=== PATIENT | male | born 1960 | race Caucasian/White ===

== ENCOUNTER 2017-03-19 17:45 | Inpatient (IN) | payer SELFPAY ==
[2017-03-19] MEDS ORDERED: Ketorolac Tromethamine 30 MG/ML VIAL ONE (19:11)
[2017-03-19] MEDS ORDERED: Acetaminophen 500 MG TAB ONE (19:28)
[2017-03-19 19:38] LABS: #Eosinphils 0.1 thou/uL (0.0-0.7); #Lymphocytes 2.1 thou/uL (1.20-3.40); #Monocytes 1.2 thou/uL (0.11-0.59); #Neutrophils 13.8 thou/uL (1.40-6.50); %Basophils 0.1 % (0.0-1.0); %Eosinophils 0.5 % (0.0-10.0); %Lymphocytes 12.4 % (21.0-51.0); %Monocytes 6.9 % (0.0-10.0); %Neutrophils 80.2 % (42.0-75.0); Mean Corpuscular HGB CONC 34.1 g/dL (32.0-36.0); Mean Corpuscular Hemoglobin 31.8 pg (27.0-31.0); Mean Corpuscular Volume 93.4 fl (80.0-94.0); Platelet Count 329 thou/uL (130-400); RBC Distribution Width 11.1 % (11.5-14.5); Red Blood Cell (RBC) Count 5.03 mill/uL (4.70-6.10); White Blood Cell (WBC) Count 17.2 thou/uL (4.8-10.8)
[2017-03-19 19:43] LABS: PTT 25.7 SEC (22.9-36.1); Prothrombin Time 13.2 SEC (12.0-14.7)
[2017-03-19] MEDS ORDERED: Piperacillin/Tazobactam 4.5 GM in Sodium Chloride 0.9% 100 ML IVPB SCH (19:45)
--- NOTE | 2017-03-19 19:57 | RAD ---
LEFT KNEE FOUR VIEWS: 03/19/17 HISTORY: Fall with knee pain. There is some benign appearing periosteal change of the tibia and fibula. There is some mild medial c ompartment narrowing and minimal spurring of the patellofemoral compartment. Small joint effusion is seen. IMPRESSION: Small joint effusion with mild arthritic changes in the knee. POS: [facility]
[2017-03-19 20:02] LABS: ALT (SGPT) 60 U/L (8-55); AST (SGOT) 27 U/L (5-34); Albumin 4.5 g/dL (3.5-5.0); Alkaline Phosphatase 73 U/L (40-150); Anion Gap 14 mmol/L (10-20); BUN (Urea Nitrogen) 10 mg/dL (8.4-25.7); Bilirubin, Total 0.8 mg/dL (0.2-1.2); Calc. Creatinine Clearance 0 mL/min (70-130); Calcium 10.3 mg/dL (7.8-10.44); Carbon Dioxide 26 mmol/L (22-29); Chloride 101 mmol/L (98-107); Estimated GFR-MDRD 83; Globulin 3.3 g/dL (2.4-3.5); Glucose 141 mg/dL (70-105); Potassium 3.8 mmol/L (3.5-5.1); Protein, Total 7.8 g/dL (6.0-8.3); Sodium 137 mmol/L (136-145)
[2017-03-19] MEDS ORDERED: Lidocaine 1% w/Epinephrine 1:100K 20 ML VIAL ONE (20:20)
[2017-03-19 21:37] LABS: CKMB 0.8 ng/mL (0-6.6); Troponin I Less than 0.010 ng/mL (< 0.028)
--- NOTE | 2017-03-19 21:42 | RAD ---
PORTABLE CHEST: 03/19/17 HISTORY: Cough and fever. Heart size is within normal limits. Mediastinal structures appear unremarkable. The lungs are clear o f infiltrates. No significant bony findings. IMPRESSION: No active intrathoracic disease. POS: [facility]
[2017-03-19] MEDS ORDERED: hydrALAZINE 20 MG/ML VIAL SLOW IVP PRN (23:04)
[2017-03-19] MEDS ORDERED: Diabetic Tussin 200 MG/10 ML UDCUP PO PRN (23:04)
[2017-03-19] MEDS ORDERED: traMADol HCl 50 MG TAB PO PRN (23:04)
[2017-03-19] MEDS ORDERED: Senokot 8.6 MG TAB PO PRN (23:04)
[2017-03-19] MEDS ORDERED: Loratadine 10 MG TAB PO PRN (23:04)
[2017-03-19] MEDS ORDERED: cloNIDine 0.1 MG TAB PO PRN (23:04)
[2017-03-19] MEDS ORDERED: Ondansetron HCl/PF 4 MG/2 ML Vial IVP PRN (23:04)
[2017-03-19] MEDS ORDERED: Acetaminophen 325 MG TAB PO PRN (23:04)
[2017-03-19] MEDS ORDERED: Bisacodyl 5 MG TAB PO PRN (23:04)
[2017-03-19] MEDS ORDERED: Nitroglycerin 0.4 MG TAB (25 Tab Bottle) SL PRN (23:04)
[2017-03-19] MEDS ORDERED: Benzonatate 100 MG CAP PO PRN (23:04)
[2017-03-19] MEDS ORDERED: Calcium Carbonate 500 MG ChewTAB PO PRN (23:04)
[2017-03-19] MEDS ORDERED: Mag-Al 1200 mg/1200 mg/30 ML UDCUP PO PRN (23:04)
[2017-03-19] MEDS: Sodium Chloride 0.9% 1,000 ML IV SCH (23:22)
[2017-03-19] MEDS ORDERED: Amlodipine 5 MG TAB PO SCH (23:30)
[2017-03-19 23:40] VITALS: BMI 28.5
[2017-03-19 23:44] LABS: Lactic Acid 2.1 mmol/L (0.5-2.2)
--- NOTE | 2017-03-19 23:58 | HP ---
PRIMARY CARE PHYSICIAN: Dr. Forman. CHIEF COMPLAINT: Fever and left knee pain. HISTORY OF PRESENT ILLNESS: Mr. Manzo is a 56-year-old male without any significant past medical h istory who presented to the emergency room with the above-mentioned complaints. The patient's histor y is obtained mainly by himself and electronic medical records have been reviewed. Case has been dis cussed with admitting ER physician. According to Mr. Manzo, he has history of gout and oftentimes he would have swelling of his toes. He has had one episode of left knee swelling about 6 months ago when an outside physician drained abo ut 80 mL of fluid from his left knee and his symptoms improved. He has a reoccurring knee pain a few days ago and went to see his primary care physician, Dr. Forman who drained the knee and gave him a steroid injection. His pain improved, but yesterday, he started to have low-grade fevers, which wa s subjective in nature. His left knee started to hurt again. He does not have any significant swell ing, but the fever bothered him and he came to the Emergency Room where his fever was 100.6. In the emergency room, attempt was made to do another arthrocentesis, but no fluid was obtainable. A n x-ray of the knee was done which does not show any specific fluid collection. Because of the fever and the knee pain, the possibility of septic arthritis is entertained. director call Orthopedics, Dr. Alfred allred have been contacted. As per his recommendations, he is going to be admitted to Internal Medici ne with Orthopedics consultation for possible I&D tomorrow. He has received appropriate IV antibioti cs in the emergency room as per my discussion with the ER physician. PAST MEDICAL HISTORY: Gout. PAST SURGICAL HISTORY: Arthrocentesis of the left knee. PSYCHIATRIC HISTORY: No anxiety, no depression. SOCIAL HISTORY: He dips tobacco and uses one can per day. He drinks up to 3-4 alcoholic beverages o n a daily basis. He has been dipping tobacco for almost 30 years or more. FAMILY HISTORY: Hypertension in his father, otherwise he denies any premature coronary artery diseas e, stroke, cancer, diabetes in his family. ALLERGIES: No known medication allergies. CURRENT MEDICATIONS: None. REVIEW OF SYSTEMS: The following complete review of systems was negative, unless otherwise mentioned in the HPI or below: Constitutional: Weight loss or gain, ability to conduct usual activities. Sk in: Rash, itching. Eyes: Double vision, pain. ENT/Mouth: Nose bleeding, neck stiffness, pain, te nderness. Cardiovascular: Palpitations, dyspnea on exertion, orthopnea. Respiratory: Shortness of breath, wheezing, cough, hemoptysis, fever or night sweats. Gastrointestinal: Poor appetite, abdom inal pain, heartburn, nausea, vomiting, constipation, or diarrhea. Genitourinary: Urgency, frequenc y, dysuria, nocturia. Musculoskeletal: Pain, swelling. Neurologic/Psychiatric: Anxiety, depressio n. Allergy/Immunologic: Skin rash, bleeding tendency. It is negative except for those mentioned in the history and physical. PHYSICAL EXAMINATION: VITAL SIGNS: Upon presentation, blood pressure 139/73, pulse of 115, respirations 20, temperature 10 0.6, saturating 96% on room air. GENERAL: In no acute distress, awake, alert, oriented x3. HEENT: Mucous membrane is moist and pink. No oropharyngeal exudate or erythema. Head is normocepha lic, atraumatic. Pupils equal, reactive to light and accommodation. Extraocular movements intact. NECK: Supple without any lymphadenopathy, JVD or bruit. CHEST: Clear to auscultation without any wheezing, rales or rhonchi. CARDIOVASCULAR: Rate and rhythm is regular without any murmur, rubs or gallops. ABDOMEN: Soft, nontender, nondistended. Positive bowel sounds. EXTREMITIES: his left knee is warm to touch without any significant erythema to it. No crepitus or effusions noticed on palpation. His range of motion is somewhat limited due to pain, but otherwise l ower extremities are free of any cyanosis, clubbing, or edema. Mild swelling of the left knee in com parison to the right knee is noticed. NEUROLOGIC: Nonfocal. SKIN: Free of any rashes or bruises. Feels warm and dry to touch. PSYCHIATRIC: Normal affect. LABORATORY DATA: His 12-lead EKG shows sinus tachycardia with first degree AV block. Chest x-ray by my review, there is no evidence of pleural effusion. No infiltrate either. Knee x-ray of the left knee shows some medial compartment narrowing and spurring of the patellofemoral compartment. A small joint effusion is seen with moderate arthritic change in the knee. His CBC shows WBCs elevated at 1 7.2 with 80% neutrophils, otherwise unremarkable. ESR is normal at 8. CRP is elevated to 4.44. His lactic acid is elevated to 2.7. Blood sugar of 141, AST 60. Cardiac enzymes are negative. Creatin e kinase 92. Coagulation studies are within normal limits. His serum chemistry is otherwise unremar kable. IMPRESSION AND PLAN: 1. Left knee pain with fever. Possible septic arthritis. The patient has elevated WBCs and lactic acid and the possibility of sepsis cannot be ruled out. At this time, we will continue the broad spe ctrum IV antibiotics and consult Orthopedics in the morning. Blood cultures have been obtained and w e will follow the results. We will continue him on vancomycin and Zosyn that he has received in the emergency room. Further imaging studies as per Orthopedics recommendations. 2. Hypertension. The patient is mildly hypertensive in the hospital. Most likely, he has essential hypertension that has not been corrected, we will start him on low dose amlodipine and monitor close ly. 3. Chest pain. The patient did tell the ER physician that he had some chest pain earlier today. Se rial cardiac enzymes have been ordered and we will follow the results. Currently, he is symptom free and hemodynamically stable. His 12-lead EKG is unremarkable for any evidence of acute coronary synd leda. 4. History of gout, currently not on any medications. 5. Code status: FULL CODE. Discussed with the patient. 6. Deep venous thrombosis and gastrointestinal prophylaxis. DISPOSITION: Mr. Manzo is being admitted for possible septic arthritis and sepsis. ESTIMATED LENGTH OF STAY: At this time is 2-3 midnight. Further management will depend upon his cli nical course.
[2017-03-20 00:04] LABS: Troponin I Less than 0.010 ng/mL (< 0.028)
[2017-03-20 02:48] LABS: #Eosinphils 0.1 thou/uL (0.0-0.7); #Lymphocytes 2.5 thou/uL (1.20-3.40); #Monocytes 1.1 thou/uL (0.11-0.59); #Neutrophils 6.1 thou/uL (1.40-6.50); %Basophils 0.2 % (0.0-1.0); %Eosinophils 0.7 % (0.0-10.0); %Lymphocytes 25.4 % (21.0-51.0); %Monocytes 11.1 % (0.0-10.0); %Neutrophils 62.5 % (42.0-75.0); Hemoglobin 13.5 g/dL (14.0-18.0); Mean Corpuscular HGB CONC 34.4 g/dL (32.0-36.0); Mean Corpuscular Hemoglobin 32.2 pg (27.0-31.0); Mean Corpuscular Volume 93.6 fl (80.0-94.0); Mean Platelet Volume 7.8 fL (7.4-10.4); Platelet Count 242 thou/uL (130-400); White Blood Cell (WBC) Count 9.7 thou/uL (4.8-10.8)
[2017-03-20] MEDS: Piperacillin/Tazobactam 3.375 GM in Sodium Chloride 0.9% 100 ML IVPB SCH ×4 (03:09→20:22)
[2017-03-20 03:16] LABS: Troponin I Less than 0.010 ng/mL (< 0.028)
[2017-03-20 03:31] LABS: Anion Gap 12 mmol/L (10-20); BUN (Urea Nitrogen) 9 mg/dL (8.4-25.7); Calc. Creatinine Clearance 153 mL/min (70-130); Calcium 8.9 mg/dL (7.8-10.44); Carbon Dioxide 23 mmol/L (22-29); Chloride 108 mmol/L (98-107); Estimated GFR-MDRD Greater than 90; Glucose 115 mg/dL (70-105); Potassium 3.9 mmol/L (3.5-5.1); Sodium 139 mmol/L (136-145)
[2017-03-20] MEDS: Vancomycin HCl 1.5 GM in Sodium Chloride 0.9% 250 ML 300 ML IVPB SCH ×3 (04:17→18:41)
[2017-03-20] MEDS ORDERED: Lidocaine 1% (PF) 30 ML VIAL ONE (07:48)
[2017-03-20] MEDS: Enoxaparin Sodium 40 MG/0.4 ML SYRINGE SC SCH (08:44)
[2017-03-20] MEDS: Amlodipine 5 MG TAB PO SCH (08:44)
[2017-03-20] MEDS: Famotidine/PF 20 mg/2ml Vial SLOW IVP SCH ×2 (08:45→20:22)
[2017-03-20 08:51] LABS: BF Color Yellow; Body Fluid Source SYNOVIAL FLUID; Clarity Cloudy/Turbid (Clear); Tube # EDTA
[2017-03-20 08:55] LABS: RBC Count-Automated 34000 /cumm; WBC/NonHematic-Auto 43600 /cumm
[2017-03-20] MEDS ORDERED: Vancomycin HCl 1 GM in Premix Bag 1 BAG IVPB SCH (09:00)
[2017-03-20 09:23] LABS: Synovial Fluid, Glucose 91 mg/dL (Not Available); Synovial Fluid, Protein 4.6 g/dL (Not Available); Synovial Fluid, Uric Acid Less than 5.0 mg/dL (Not Available)
[2017-03-20 10:36] LABS: BF Segmented Neutrophils 86 %; Cell Count Non Hematic 12 %; Lymphocytes 2 %
[2017-03-20] MEDS: Sodium Chloride 0.9% 1,000 ML IV SCH (13:10)
--- NOTE | 2017-03-20 13:26 | CON ---
DATE OF CONSULTATION: 03/20/2017 REQUESTING PHYSICIAN: Dr. Rigoberto Forman CONSULTING PHYSICIAN: Dr. Judd Patel REASON FOR CONSULTATION: Left knee effusion. BRIEF CLINICAL HISTORY: Sherwin is a 56-year-old white male who was admitted for swelling of the left knee, which has been present for about 3 weeks. Primary care physician, Dr. Forman, performed arth rocentesis on the and he has had a reaccumulation of the effusion since then. He had improvemen t in pain, I believe he was treated with oral medications. Yesterday he has been having some low gra de fevers, reaccumulation of pain and swelling in the left knee and with concerns over septic arthrit is he was sent to the emergency room and admitted to the Medicine Service. Our service was consulted for evaluation. An attempted arthrocentesis was made in the emergency room, but no fluid was obtain ed. Plain radiographs were also obtained. He was started on Zosyn and vancomycin. He has had symptoms like this about 6 months before when he had his first effusion which was successf ully drained in an urgent care clinic. He does carrier a remote history of gout. PAST SURGICAL HISTORY: Negative. He has not had any problems with his knee. He denies any trauma o r injury prior to 6 months ago. This has been a spontaneous effusion. SOCIAL HISTORY: He dips, consumes ethanol on a daily basis. PHYSICAL EXAMINATION: Visual inspection of left knee demonstrates +1-2 effusion. Range of motion is limited, but ballottement does not appear to be extremely exquisitely uncomfortable. He can tolerat e ballottement and mild range of motion, but he is just tense and tight. The patient does not grimac e during exam. Normal examination to include varus and valgus stressing. No erythema is appreciated . He is neurovascularly intact distal to this knee. IMAGING STUDIES: Four views left knee demonstrate a suprapatellar effusion. No osseous abnormalitie s, no arthritis, no joint narrowing is noted. IMPRESSION: Monoarticular asymmetric effusion, left knee. PLAN: 1. Arthrocentesis will be performed at the bedside this morning and approximately 50 mL of slightly cloudy yellow fluid was removed with a positive string sign, but it otherwise looked like an inflamma tory condition rather than a septic situation. 2. I will go ahead and let him eat a regular diet. No plans for surgical arthrotomy at this point due to an arthrocentesis that clinically appeared not to be septic. We will recheck after laboratory returns.
--- NOTE | 2017-03-20 13:37 | OP ---
PREPROCEDURAL DIAGNOSIS: Left knee effusion. POSTPROCEDURAL DIAGNOSIS: Left knee effusion. PROCEDURE PERFORMED: Needle arthrocentesis left knee without ultrasound guidance. SURGEON: Ketan Escalera PA-C ANESTHESIA: Skin wheal, 1% Xylocaine. PROCEDURE IN DETAIL: After informed consent was obtained, the patient was positioned appropriately, left knee was prepped and draped in usual sterile fashion. Time-out was called and all members of e team agreed upon site, surgeon, and patient. Once this was completed and the skin wheal anesthesia 1% Xylocaine was made in the lateral suprapatellar approach, then introduced an 18-gauge needle in a Z-line approach through the capsule. Upon entering capsule, I was able to remove 50 mL of yellow vi scous fluid consistent with inflammatory arthropathy. The needle was withdrawn, sterile dressing was applied. The patient tolerated the procedure without any complications. SPECIMENS: Will include Gram stain culture and sensitivity, cell count with differential, glucose, p rotein, uric acid and crystal analysis.
[2017-03-20] MEDS: HYDROcodone/Acetaminophen 5/325 mg Tablet PO PRN ×2 (15:16→19:09)
--- NOTE | 2017-03-20 17:15 | PDOC.EVN ---
Event Note - Event Note Event Note: Pt was admitted to Hospitalist service by error. Dr. Forman's office was notified today AM regarding this admission. Will sign off.
--- NOTE | 2017-03-20 21:54 | PRG ---
DATE OF SERVICE: 03/20/2017. HISTORY OF PRESENT ILLNESS: The patient states that he got up with walking program, successfully amb ulated around the unit several times without difficulty. He does have some tenderness in the left kn ee, status post drainage with Orthopedic Surgery. He verbalized understanding regarding pending cult ures and fluid aspirate, not fully consistent with septic arthrosis. The patient denies any current cough or congestion, diarrhea, pain with urination, or open skin ulcers. No fever since admission. Following hydration, the patient's counts have normalized. No current reaction to IV antibiotics of vancomycin and Zosyn. 1 of 2 blood cultures with gram-positive cocci, identification to follow. Chase ing over for [facility], who admitted my patient and contacted me to take over care. PHYSICAL EXAMINATION: VITAL SIGNS: Currently, temperature 98.8, pulse of 86, respiratory rate of 16, oxygen saturation 95% on room air, blood pressure 127/72. GENERAL: The patient is alert, oriented, in no acute distress. HEENT: Head, normocephalic and atraumatic. Extraocular movements are intact. Sclerae are clear. O ral mucosa is moist. NECK: Supple. HEART: Regular rate and rhythm. No murmurs are auscultated. LUNGS: Clear to auscultation bilaterally. No rubs or wheezes. ABDOMEN: Soft, nontender. Positive bowel sounds throughout. EXTREMITIES: Lower extremities without cyanosis or edema. Left lower extremity with knee Spencer wrap i n place. No extending erythema or pallor currently. Slight pallor underneath the Spencer wrap when expo sed. NEUROLOGIC: The patient is alert and oriented x3. No focal deficits. Speech is normal. ASSESSMENT: 1. Sepsis. 2. Left knee effusion. 3. Gout. PLAN: Following up orthopedic recommendations. We will follow up on blood culture, 1 of 2 may be a contaminant. Otherwise, the patient has remained hemodynamically stable. We will likely deescalate antibiotics tomorrow following further culture read. Being the patient is ambulatory and not grossly septic, he may be appropriate for discharge with a close clinic followup. We will continue to mason lloyd
[2017-03-21 02:03] LABS: #Eosinphils 0.2 thou/uL (0.0-0.7); #Lymphocytes 1.6 thou/uL (1.20-3.40); #Monocytes 0.7 thou/uL (0.11-0.59); #Neutrophils 7.5 thou/uL (1.40-6.50); %Basophils 0.1 % (0.0-1.0); %Eosinophils 2.1 % (0.0-10.0); %Lymphocytes 15.8 % (21.0-51.0); %Monocytes 6.7 % (0.0-10.0); %Neutrophils 75.4 % (42.0-75.0); Mean Corpuscular Hemoglobin 32.1 pg (27.0-31.0); Mean Corpuscular Volume 94.5 fl (80.0-94.0); Platelet Count 247 thou/uL (130-400); RBC Distribution Width 11.1 % (11.5-14.5); Red Blood Cell (RBC) Count 4.37 mill/uL (4.70-6.10)
[2017-03-21] MEDS: Piperacillin/Tazobactam 3.375 GM in Sodium Chloride 0.9% 100 ML IVPB SCH ×3 (02:04→15:27)
[2017-03-21 02:20] LABS: Vancomycin, Trough 19.5 ug/mL
[2017-03-21 03:16] LABS: ALT (SGPT) 79 U/L (8-55); AST (SGOT) 47 U/L (5-34); Albumin 3.7 g/dL (3.5-5.0); Alkaline Phosphatase 65 U/L (40-150); Anion Gap 12 mmol/L (10-20); BUN (Urea Nitrogen) 9 mg/dL (8.4-25.7); Bilirubin, Total 1.5 mg/dL (0.2-1.2); Calc. Creatinine Clearance 134 mL/min (70-130); Calcium 9.1 mg/dL (7.8-10.44); Carbon Dioxide 24 mmol/L (22-29); Chloride 107 mmol/L (98-107); Estimated GFR-MDRD 87; Globulin 2.9 g/dL (2.4-3.5); Glucose 116 mg/dL (70-105); Potassium 3.9 mmol/L (3.5-5.1); Protein, Total 6.6 g/dL (6.0-8.3); Sodium 139 mmol/L (136-145)
[2017-03-21] MEDS: Vancomycin HCl 1.5 GM in Sodium Chloride 0.9% 250 ML 300 ML IVPB SCH ×2 (03:49→12:00)
[2017-03-21] MEDS: Sodium Chloride 0.9% 1,000 ML IV SCH (03:49)
[2017-03-21] MEDS: HYDROcodone/Acetaminophen 5/325 mg Tablet PO PRN ×4 (03:53→18:19)
--- NOTE | 2017-03-21 09:42 | CT ---
CT SCAN ABDOMEN AND PELVIS WITH IV CONTRAST: Date: 03/21/17 HISTORY: 56-year-old male with sepsis and transaminitis. History of gout. COMPARISON: 05/11/12. FINDINGS: Bilateral lower lobe mostly pleural based parenchymal changes, evidence for bibasilar atelectasis and /or associated pneumonitis. The liver, gallbladder, pancreas, and spleen are unremarkable. 2.3 cm cyst off the upper pole of the right kidney has higher attenuation than expected for a simple cyst consistent with that of a complic ated cyst. It is stable in size when compared to the prior 08/11/12 study, and at that time was also higher in attenuation on the noncontrast study, probably minimally hemorrhagic or proteinaceous cyst. Bilateral renal hydronephrosis with dilated ureters. At least two nonobstructing right renal calcul i up to 0.8 cm and one nonobstructing left renal calculus. Too small to characterize probable small c ysts of the lateral aspect of the left mid kidney. No CT evidence of acute renal parenchymal abnormal attenuation that would suggest pyelonephritis. Bilateral upper collecting system and ureteral dilat ation, not quite as severe as on the 08/11/12 study. No evidence for obstructing calculus. The pos sibility of reflux as an etiology for the ureteral hydronephrosis might be considered. There is a 2.4 x 3.3 cm diameter soft tissue mass in the cecum at the level immediately adjacent to the ileocecal v alve concerning for neoplasm. Further evaluation with endoscopy and biopsy in that regard is suggeste d. Moderate solid fecal material throughout the colon, including minimally dilated rectum, evidence f or constipation. Normal appearing appendix. No evidence for adenopathy, abscess, or abnormal fluid collection within t he abdomen or pelvis. IMPRESSION: 1. 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 2. Bilateral ureteral and upper collecting system dilatation without obstructing calculus, slightly improved from prior study. 3. Bilateral nonobstructing renal calculi. 4. Stable complicated left upper pole renal cyst. 5. Evidence for constipation. 6. Bibasilar parenchymal changes, evidence for bilateral lower lobe pneumonia/pneumonitis/bibasilar atelectasis. 7. Unremarkable appearing gallbladder. No ductal dilatation. CODE T. POS: [facility]
[2017-03-21] MEDS: Famotidine/PF 20 mg/2ml Vial SLOW IVP SCH ×2 (10:00→19:36)
[2017-03-21] MEDS: Amlodipine 5 MG TAB PO SCH (10:00)
[2017-03-21] MEDS: Enoxaparin Sodium 40 MG/0.4 ML SYRINGE SC SCH (10:00)
[2017-03-21 11:20] LABS: ALT (SGPT) 89 U/L (8-55); AST (SGOT) 56 U/L (5-34); Albumin 3.6 g/dL (3.5-5.0); Alkaline Phosphatase 64 U/L (40-150); Bilirubin, Direct 0.7 mg/dL (0.1-0.3); Bilirubin, Total 1.4 mg/dL (0.2-1.2); Protein, Total 6.5 g/dL (6.0-8.3)
[2017-03-21] MEDS ORDERED: ISOVUE-370 76%-LOCM 1 ML ONE (13:13)
[2017-03-21] MEDS: Clindamycin 150 MG CAP PO SCH (18:18)
--- NOTE | 2017-03-21 19:05 | PRG ---
DATE OF SERVICE: 03/21/2017 SUBJECTIVE: The patient states he feels fine, ambulating well, reduced swelling and warmth to left k nee, remains in Spencer wrap and has no acute complaints. Denies any abdomen pain and denies any fevers. OBJECTIVE: GENERAL: The patient is alert and oriented, no acute distress. VITAL SIGNS: Temperature 97.7, pulse 86, respiratory rate 16, oxygen saturation 96% on room air, blo od pressure 121/73. HEENT: Normocephalic and atraumatic. Extraocular movements are intact. Sclerae are clear. Oral mu cosa is moist. LUNGS: Clear to auscultation bilaterally. No rubs or wheezes. HEART: Regular rate and rhythm. No murmurs auscultated. ABDOMEN: Soft and nontender, positive bowel sounds throughout. EXTREMITIES: Lower extremities without cyanosis or edema. LABORATORY AND IMAGING DATA: Review of laboratory work, white blood cell count of 10.0, platelet cou nt of 247 and hemoglobin 14.0. Per pathology report, crystal identification of gout, crystals, other phillips inflammatory fluid, no evidence of infection. Sodium 139, potassium 3.9, CO2 of 24, creatinine of 0.9, glucose of 116, total bilirubin 1.5, AST of 47, ALT of 79, total albumin 3.7 noted. One of t wo cultures gram negative found to be Staph epidermis. Culture still remains negative. CT exam show ed renal calculi, possible pneumonia versus atelectasis of lower lung bases, mild to moderate constip ation, nonobstructing renal calculi or nonobstructing remarkable gallbladder. Soft tissue mass and c ecum near the level of the ileocecal valve concerning for neoplasm 2.4 x 3.3 cm in diameter. ASSESSMENT AND PLAN: Left knee effusion, gout, ileocecal mass. Deescalating antibiotics after patie nt remains clinically stable. No signs of infection on cultures or knee aspirate. Deescalating the clindamycin as a CT scan may have shown possible pneumonia that was not present on a chest x-ray on a dmission. Lungs remained clear. The patient is without cough. We will consult Gastroenterology for ileocecal mass whether he be a candidate for inpatient versus outpatient workup and possible colonos copy. Otherwise, appears stable for potential discharge from this standpoint.
--- NOTE | 2017-03-21 22:58 | CON ---
DATE OF CONSULTATION: 03/21/2017 CHIEF COMPLAINT: Abnormal CT scan. HISTORY OF PRESENT ILLNESS: Mr. Manzo is a 56-year-old man who was admitted with sepsis-type syndr ome and left knee effusion with gout. During evaluation of infectious workup, he had a CT scan of th e abdomen and pelvis, which showed a 2.4 x 3.3-cm mass near the ileocecal valve. He has had no nause a, vomiting, diarrhea, or constipation. He had a good normal bowel movement today. He has had no bl ood in the stool. No weight loss. No dysphagia, heartburn, or upper abdominal symptoms. PAST MEDICAL HISTORY: Gout. Habits: He does not smoke. No drugs. He drinks 5 or 6 beers per day. PAST SURGICAL HISTORY: Arthrocentesis. FAMILY HISTORY: His father had throat cancer associated with alcohol use. His mother had lung cance r associated with smoking. ALLERGIES: No known drug allergies. MEDICATIONS PRIOR TO ADMISSION: None. CURRENT INPATIENT MEDICATIONS: Include enoxaparin, clindamycin, amlodipine, famotidine. REVIEW OF SYSTEMS: Negative x10 systems reviewed except as stated in the history of present illness. PHYSICAL EXAMINATION: VITAL SIGNS: Temperature 97.7, pulse 86, blood pressure 121/73. GENERAL: He is in no acute distress, alert, and oriented x3. HEENT: Eyes have no scleral icterus. Oropharynx is clear without lesions. NECK: No cervical or supraclavicular lymphadenopathy. LUNGS: Clear to auscultation bilaterally. HEART: Regular rate and rhythm without murmur. ABDOMEN: Soft, nontender, nondistended. Bowel sounds are present. No hepatomegaly. EXTREMITIES: No lower extremity edema. LABORATORY DATA: White blood cell count 10, down from 17 on admission; hemoglobin 14; platelets 247. INR 1, bilirubin 1.4, AST 56, ALT 89, alkaline phosphatase 64, albumin 3.6. IMPRESSION: 1. Abnormal CT scan of the abdomen and pelvis showing a 2.4 x 3.3-cm mass in the cecum near the ileo cecal valve. 2. Gout and left knee effusion. 3. Alcohol abuse with 5-6 beers per day. 4. Abnormal liver function tests. There are no obvious signs of cirrhosis by physical exam or labs. His platelets are normal. CT scan did not note a nodular liver. RECOMMENDATIONS: 1. Check viral hepatitis panel. 2. Check iron saturation. 3. Plan colonoscopy to evaluate the cecal mass. I did offer same day colonoscopy, he can prep in morning and then do colonoscopy early afternoon; however, given his limited mobility with his knee pain, he would rather wait and to go on a clear liquid diet tomorrow and then take the prep tomorrow afternoon and do the procedure Friday. He is a little anxious about doing the colonoscopy as well. 4. Recommend alcohol cessation.
[2017-03-22] MEDS: Clindamycin 150 MG CAP PO SCH ×4 (01:20→23:17)
[2017-03-22] MEDS: HYDROcodone/Acetaminophen 5/325 mg Tablet PO PRN ×5 (01:21→23:18)
[2017-03-22 05:26] LABS: #Eosinphils 0.3 thou/uL (0.0-0.7); #Lymphocytes 1.8 thou/uL (1.20-3.40); #Monocytes 0.7 thou/uL (0.11-0.59); #Neutrophils 8.9 thou/uL (1.40-6.50); %Basophils 0.2 % (0.0-1.0); %Eosinophils 2.6 % (0.0-10.0); %Monocytes 6.2 % (0.0-10.0); %Neutrophils 75.9 % (42.0-75.0); Mean Corpuscular HGB CONC 34.1 g/dL (32.0-36.0); Mean Corpuscular Hemoglobin 32.3 pg (27.0-31.0); Mean Corpuscular Volume 94.7 fl (80.0-94.0); Mean Platelet Volume 8.3 fL (7.4-10.4); Platelet Count 270 thou/uL (130-400); RBC Distribution Width 11.1 % (11.5-14.5); Red Blood Cell (RBC) Count 4.34 mill/uL (4.70-6.10); White Blood Cell (WBC) Count 11.7 thou/uL (4.8-10.8)
[2017-03-22 05:55] LABS: ALT (SGPT) 100 U/L (8-55); AST (SGOT) 41 U/L (5-34); Albumin 3.7 g/dL (3.5-5.0); Alkaline Phosphatase 74 U/L (40-150); Anion Gap 13 mmol/L (10-20); BUN (Urea Nitrogen) 8 mg/dL (8.4-25.7); Bilirubin, Total 0.9 mg/dL (0.2-1.2); Calc. Creatinine Clearance 144 mL/min (70-130); Calcium 9.5 mg/dL (7.8-10.44); Carbon Dioxide 26 mmol/L (22-29); Chloride 105 mmol/L (98-107); Estimated GFR-MDRD Greater than 90; Glucose 113 mg/dL (70-105); Iron 35 ug/dL (65-175); Iron Binding Capacity, Total 223 mcg/dL (261-462); Potassium 3.9 mmol/L (3.5-5.1); Protein, Total 6.7 g/dL (6.0-8.3); Sodium 140 mmol/L (136-145)
[2017-03-22 06:07] LABS: HBSAB Concentration 0.19 mIU/mL; HBSAg Index 0.24 S/CO (0-0.99); Hep B Core Total Ab Non-Reactive (NonReactive); Hep B Core Total Index 0.08 S/CO (0-0.79); Hep B Surf AB Non-Reactive (NonReactive); Hep B Surf Ag Non-Reactive S/CO (NonReactive); Hep C IgG Ab Non-Reactive (NonReactive); Hep C Index 0.08 S/CO (0-0.79)
[2017-03-22] MEDS: Enoxaparin Sodium 40 MG/0.4 ML SYRINGE SC SCH (08:56)
[2017-03-22] MEDS: Famotidine/PF 20 mg/2ml Vial SLOW IVP SCH ×2 (08:56→19:32)
[2017-03-22] MEDS: Amlodipine 5 MG TAB PO SCH (08:56)
[2017-03-22 11:14] LABS: Antinuclear AB Negative (Negative); Complement-C3 (Sendout) 155 mg/dL (82-167); Complement-C4 (Sendout) 32 mg/dL (14-44); DSDNA Autoabs (FARR) Sendout 6 IU/mL (0-9); Smooth Muscle Total Antibodies <0.2 AI (0.0-0.9); Thyroid Peroxidase Ab-Sendout 12 IU/mL (0-34); U1 RNP/snRNP IgG Autoabs <0.2 AI (0.0-0.9)
--- NOTE | 2017-03-22 16:46 | EKG ---
Test Reason : Blood Pressure : / mmHG Vent. Rate : 106 BPM Atrial Rate : 106 BPM P-R Int : 234 ms QRS Dur : 102 ms QT Int : 318 ms P-R-T Axes : 050 -08 056 degrees QTc Int : 422 ms Sinus tachycardia with 1st degree A-V block Possible Left atrial enlargement Incomplete right bundle branch block Borderline ECG Confirmed by STEPHANIE LANG ([id number]), news assignment editor EWA PERKINS ([id number]) on 03/22/2017 4:45:53 PM Referred By: Confirmed By:STEPHANIE LANG
[2017-03-22] MEDS ORDERED: GoLYTELY 4,000 ml Bottle PO SCH (17:30)
[2017-03-22] MEDS ORDERED: HYDROcodone/Acetaminophen 5/325 mg Tablet PO SCH (18:00)
--- NOTE | 2017-03-22 18:39 | PRG ---
DATE OF SERVICE: 03/22/2017 SUBJECTIVE: Mr. Manzo has no acute complaints this morning. He is tolerating his clear liquid t. OBJECTIVE: VITAL SIGNS: Temperature 98.1, pulse 100, and blood pressure 131/71. GENERAL: He is in no acute distress, awake, and alert. LUNGS: Clear to auscultation bilaterally. HEART: Regular rate and rhythm. ABDOMEN: Soft, nontender, nondistended, bowel sounds are present. EXTREMITIES: No lower extremity edema. IMPRESSION: 1. Abnormal CT scan showing a possible mass in the cecum. 2. Abnormal liver function test. His iron saturation is not elevated. Viral hepatitis B and C are negative. Smooth muscle antibody is negative. RECOMMENDATIONS: 1. Colonoscopy tomorrow. 2. Alcohol cessation.
[2017-03-23 05:11] LABS: #Eosinphils 0.3 thou/uL (0.0-0.7); #Lymphocytes 1.6 thou/uL (1.20-3.40); #Monocytes 0.8 thou/uL (0.11-0.59); #Neutrophils 7.9 thou/uL (1.40-6.50); %Basophils 0.1 % (0.0-1.0); %Eosinophils 3.1 % (0.0-10.0); %Lymphocytes 14.6 % (21.0-51.0); %Monocytes 7.3 % (0.0-10.0); %Neutrophils 74.9 % (42.0-75.0); Hemoglobin 12.8 g/dL (14.0-18.0); Mean Corpuscular HGB CONC 33.9 g/dL (32.0-36.0); Mean Corpuscular Hemoglobin 31.9 pg (27.0-31.0); Mean Corpuscular Volume 94.1 fl (80.0-94.0); Mean Platelet Volume 8.6 fL (7.4-10.4); Platelet Count 266 thou/uL (130-400); RBC Distribution Width 10.9 % (11.5-14.5); Red Blood Cell (RBC) Count 4.02 mill/uL (4.70-6.10); White Blood Cell (WBC) Count 10.6 thou/uL (4.8-10.8)
[2017-03-23] MEDS: HYDROcodone/Acetaminophen 5/325 mg Tablet PO PRN ×2 (05:13→09:37)
[2017-03-23 05:39] LABS: ALT (SGPT) 94 U/L (8-55); AST (SGOT) 41 U/L (5-34); Albumin 3.5 g/dL (3.5-5.0); Alkaline Phosphatase 73 U/L (40-150); Anion Gap 12 mmol/L (10-20); BUN (Urea Nitrogen) 7 mg/dL (8.4-25.7); Calc. Creatinine Clearance 145 mL/min (70-130); Calcium 9.2 mg/dL (7.8-10.44); Carbon Dioxide 27 mmol/L (22-29); Chloride 104 mmol/L (98-107); Estimated GFR-MDRD Greater than 90; Globulin 2.9 g/dL (2.4-3.5); Glucose 104 mg/dL (70-105); Potassium 3.9 mmol/L (3.5-5.1); Protein, Total 6.4 g/dL (6.0-8.3); Sodium 139 mmol/L (136-145)
[2017-03-23 09:17] VITALS: BP 118/68
[2017-03-23] MEDS: Clindamycin 150 MG CAP PO SCH (09:38)
[2017-03-23] MEDS: Famotidine/PF 20 mg/2ml Vial SLOW IVP SCH (09:38)
[2017-03-23] MEDS: Amlodipine 5 MG TAB PO SCH (09:38)
[2017-03-23 09:54] VITALS: TEMP 97.2
--- NOTE | 2017-03-23 11:34 | OP ---
DATE OF PROCEDURE: 03/23/2017 SURGEON: Roque Jones M.D. PROCEDURE PERFORMED: Colonoscopy. PREOPERATIVE DIAGNOSIS: Abnormal CT scan suggestive of a mass in the cecum PROCEDURE IN DETAIL: Informed consent was obtained from the patient. He was sedated with total intr avenous anesthesia. The rectal exam was performed and was normal. The colonoscope was advanced to t he terminal ileum without difficulty. The preparation quality was excellent. The mucosa of the term inal ileum was normal. The ileocecal valve and appendiceal orifice were clearly identified. Retrofl exed views in the cecum were obtained and the backside of the ileocecal valve was well visualized. T here was no mass or polyp in this area. There was moderately severe diverticulosis throughout the co kimberly. There were more concentrated diverticula around the hepatic flexure. The colonic mucosa was no rmal throughout. Retroflexed views in the rectum were normal. IMPRESSION: 1. Moderately severe diverticulosis throughout the colon. 2. Otherwise normal colonoscopy to the terminal ileum. RECOMMENDATIONS: 1. Repeat colonoscopy in 10 years for colon cancer screening. 2. Follow up in the office in a month to recheck liver function tests. Alcohol cessation is advised .
[2017-03-23] MEDS ORDERED: Dexamethasone 10 MG/ML VIAL IM SCH (11:45)
[2017-03-23 13:09] LABS: Hepatitis A IgM ABS Negative (Negative); Hepatitis A Total ABS Negative (Negative)
[2017-03-23] MEDS ORDERED: Propofol 200 MG/20 ML VIAL ONE (14:40)
--- NOTE | 2017-03-24 01:29 | DIS ---
ADMIT DATE: 03/19/2017 ADMIT DIAGNOSIS: Knee cellulitis. CONSULTATIONS: Dr. Escalera and Dr. Jones. PROCEDURE: Left knee arthrocentesis, which showed gout crystals. He had an abdominal CT scan, which showed a mass in the abdomen and the colon. Dr. Jones from GI was consulted. He had a colonoscopy, which was negative. HOSPITAL COURSE: This is a 56-year-old male patient of Dr. Forman's, who came in with wo rsening left knee pain with redness and swelling, had an aspiration done in the knee, I think it was an infected joint. He was started on antibiotics empirically and the result of the aspiration of the knee showed no infection, but gout. During the workup for this, he was also found to have a mass in his colon per the radiology reading of the CT scan. Dr. Jones from Gastroenterology was consulted, he evaluated the patient and did a colonoscopy, which showed no mass, so the CT finding was essential ly an averaging error on the part of the CT technology. On the day of discharge, patient was started on some steroids and was at 180 degree turnaround was doing great, able to walk without a problem, s o he was discharged to home with a diagnosis of gout attack. He was sent home on a Medrol Dosepak wi th orders to follow up with Dr. Forman later this week.
[2017-03-24 15:21] LABS: Alpha-1-Antitrypsin 178 mg/dL (90-200)
== END 2017-03-23 17:33 | disposition home or self-care (01) | DRG 554 ==
LOC: ERS 17:45 → T4-A 21:20
PROVIDERS: ADMIT Family Medicine; ATTEND Internal Medicine
PROC: 0S9D3ZX Drainage of Left Knee Joint, Percutaneous Approach, Diagnostic (ICD-10-PCS; principal; 2017-03-19)
PROC: 0S9D3ZX Drainage of Left Knee Joint, Percutaneous Approach, Diagnostic (ICD-10-PCS; 2017-03-21)
PROC: 0DJD8ZZ Inspection of Lower Intestinal Tract, Via Natural or Artificial Opening Endoscopic (ICD-10-PCS; 2017-03-23)
DX: M10.062 Idiopathic gout, left knee (principal); F10.10 Alcohol abuse, uncomplicated; F17.220 Nicotine dependence, chewing tobacco, uncomplicated; I10 Essential (primary) hypertension; R07.9 Chest pain, unspecified; K57.30 Diverticulosis of large intestine without perforation or abscess without bleeding
CPT/HCPCS: 20610; 36415; 71045; 74177; 80048; 80053; 80202; 82103; 82104; 82550; 82553; 82945; 83540; 83550; 83605; 84157; 84484; 84560; 85025; 85060; 85610; 85652; 85730; 86140; 86160; 86225; 86235; 86376; 86704; 86706; 86709; 86803; 87040; 87070; 87149; 87205; 87340; 89051; 89060; 93005; 94760; 96361; 96365; 96367; 96375; J1040; J1100; J1650; J1885; J2001; J2543; J2704; J3370; J7050; S0028

== ENCOUNTER 2017-05-18 09:37 | Emergency (ER) | payer SELFPAY ==
[2017-05-18 10:34] LABS: #Eosinphils 0.1 thou/uL (0.0-0.7); #Lymphocytes 1.7 thou/uL (1.20-3.40); #Monocytes 1.1 thou/uL (0.11-0.59); #Neutrophils 13.6 thou/uL (1.40-6.50); %Basophils 0.2 % (0.0-1.0); %Eosinophils 0.4 % (0.0-10.0); %Lymphocytes 10.3 % (21.0-51.0); %Monocytes 6.5 % (0.0-10.0); %Neutrophils 82.7 % (42.0-75.0); Hemoglobin 14.6 g/dL (14.0-18.0); Mean Corpuscular HGB CONC 35.1 g/dL (32.0-36.0); Mean Corpuscular Hemoglobin 31.3 pg (27.0-31.0); Mean Corpuscular Volume 89.2 fl (80.0-94.0); Mean Platelet Volume 8.5 fL (7.4-10.4); Platelet Count 231 thou/uL (130-400); RBC Distribution Width 11.7 % (11.5-14.5); Red Blood Cell (RBC) Count 4.68 mill/uL (4.70-6.10); White Blood Cell (WBC) Count 16.4 thou/uL (4.8-10.8)
[2017-05-18 10:49] LABS: Anion Gap 14 mmol/L (10-20); BUN (Urea Nitrogen) 10 mg/dL (8.4-25.7); Calc. Creatinine Clearance 0 mL/min (70-130); Calcium 9.5 mg/dL (7.8-10.44); Carbon Dioxide 23 mmol/L (22-29); Chloride 102 mmol/L (98-107); Estimated GFR-MDRD 68; Glucose 111 mg/dL (70-105); Lipase 11 U/L (8-78); Potassium 4.2 mmol/L (3.5-5.1); Sodium 135 mmol/L (136-145)
[2017-05-18 11:40] LABS: Bilirubin Negative (Negative); Blood, Urine Small (Negative); Clarity CLEAR (Clear); Glucose, Urine (Dipstick) Negative (Negative); Leukocyte Negative (Negative); Nitrite Negative (Negative); Protein, Urine (Dipstick) Negative (Neg-Trace); Specific Gravity, Urine 1.007 (1.002-1.036); Urobilinogen 0.2 mg/dL (0.2-1.0)
[2017-05-18] MEDS ORDERED: Ondansetron HCl/PF 4 MG/2 ML Vial ONE (11:40)
[2017-05-18] MEDS ORDERED: Ketorolac Tromethamine 30 MG/ML VIAL ONE (11:40)
[2017-05-18 11:52] LABS: Bacteria/HPF None Seen HPF (None Seen); Hyaline Casts/LPF 0-3 HYALINE CAST LPF (0-3 Hyaline); RBC/HPF None Seen HPF (0-3); Squamous Epithelial None Seen HPF (0-3); WBC/HPF 0-3 HPF (0-3)
--- NOTE | 2017-05-18 12:12 | CT ---
CT ABDOMEN AND PELVIS WITHOUT CONTRAST STONE PROTOCOL: HISTORY: Pain. COMPARISON: CT abdomen and pelvis 03/21/17. FINDINGS: There is mild atelectasis in the lung bases. No pericardial effusion. There is obstructive uropathy on the left with the proximal left ureteral calculus measuring 3 x 6 mm distal to the left renal pelvis approximately 2 cm. Mild to moderate left perinephric stranding. N o calculus of the urinary bladder. There are calculi in the right renal collecting system measuring up to 9 mm, likely within a dilated calyx. No other left ureteral calculus is present. There is a h yperdense cystic structure superior pole left kidney. No dilated loops of large or small bowel. No acute intraperitoneal gas. There is dilatation of the right mid and distal ureter similar to the prior examination without evidence of obstructive uropathy . IMPRESSION: 1. Proximal left ureteral obstructing calculus measuring 3 x 7 mm approximately 2 cm distal to the r enal pelvis. Extensive left perinephric stranding and hydronephrosis. 2. Dilatation of the left mid and distal ureter with normal tapering at the ureterovesical junction. This is a chronic finding. POS: PEDRO
== END 2017-05-18 13:25 | disposition home or self-care (01) ==
LOC: ERS 09:37
DX: N13.2 Hydronephrosis with renal and ureteral calculous obstruction (principal); F17.220 Nicotine dependence, chewing tobacco, uncomplicated; M10.9 Gout, unspecified; Z79.899 Other long term (current) drug therapy
CPT/HCPCS: 74176; 80048; 81003; 81015; 83690; 85025; 96361; 96374; 96375; J1885; J2405

== ENCOUNTER 2017-06-09 12:39 | Outpatient (CLI) | payer SELFPAY ==
--- NOTE | 2017-06-09 14:05 | RAD ---
ABDOMEN 1 VIEW: HISTORY: Calculus of ureter. COMPARISON: CT stone protocol 05/18/17. FINDINGS: There is a large calculus of the right renal parenchyma. No definite calculus is seen projecting ove r the left renal collecting system nor the ureter. Five [id number] lumbar-type vertebrae. No acute osseous abnormality. IMPRESSION: No definite calculus projecting over the left renal collecting system or ureter. POS: PEDRO
== END 2017-06-09 12:40 | disposition home or self-care (01) ==
LOC: RAD 12:39
PROVIDERS: ATTEND Urology
DX: N20.1 Calculus of ureter (principal)
CPT/HCPCS: 74018

== ENCOUNTER 2017-10-13 15:07 | Outpatient (CLI) | payer OTHER | END 2017-10-13 15:08 | disposition home or self-care (01) | LOC: BICULT 15:07 | PROVIDERS: ATTEND Urology | DX: N13.4 Hydroureter (principal); N20.0 Calculus of kidney | CPT/HCPCS: 76770 ==

== ENCOUNTER 2018-07-21 12:47 | Outpatient (CLI) | payer OTHER ==
--- NOTE | 2018-07-21 13:49 | MRI ---
Exam: BRAIN MRI WITHOUT CONTRAST: HISTORY: Intracranial arachnoid cyst. COMPARISON: None FINDINGS: Calvarial marrow signal intensity: Appropriate T1 signal Gradient echo sequence: No hemorrhage Brain parenchyma: No intraparenchymal mass. There is mass effect upon the temporal horn of the left c erebrum secondary to an intrinsic T1 hypointense, T2 hyperintense lesion with FLAIR hypointensity. The signal characteristics are compatible with CSF. An arachnoid cyst measuring 4.1 x 5.7 cm is favor ed. Despite mass effect upon the anterior pole the left temporal lobe, there is no significant vasogenic edema. There is a small component of left uncal herniation with slight narrowing of the lef t ambient cistern. There is no significant midline shift. Cortical redd-white matter differentiation: Preserved Restricted diffusion: Central arterial flow voids are maintained. Absent restricted diffusion White matter signal intensities: T2, FLAIR white matter hyperintensities due to chronic small vessel ischemic changes Sinuses: Adequate aeration of the paranasal sinuses and mastoid air cells. IMPRESSION: 1. Large arachnoid cyst centered in the left middle cranial fossa. There is mass effect upon the left temporal lobe. 2. Mild narrowing of the left ambient cistern secondary to uncal herniation. 3. Absent restricted diffusion. No acute infarct. Transcribed Date/Time: 07/21/2018 2:00 PM
== END 2018-07-21 12:48 | disposition home or self-care (01) ==
LOC: TBSIIMAG 12:47
PROVIDERS: ATTEND Neurological Surgery
DX: G93.0 Cerebral cysts (principal); G93.89 Other specified disorders of brain
CPT/HCPCS: 70551

== ENCOUNTER 2019-08-04 08:50 | Outpatient (CLI) | payer OTHER ==
--- NOTE | 2019-08-04 10:18 | MRI ---
MRI BRAIN WITH AND WITHOUT CONTRAST: DATE: 08/04/2019 HISTORY: 59-year-old male follow-up arachnoid cyst 1993.0 COMPARISON: 07/21/2018 TECHNIQUE: Multiplanar, multisequence MRI of the brain performed pre- and post-IV injection of gadolinium based contrast agent. FINDINGS: Again noted is the large extra-axial fluid collection in the left middle cranial fossa, superiorly di splacing the adjacent lateral frontal lobe parenchyma, and posteriorly displacing the left temporal lobe, chronically. The inferior portion of the left basal ganglia is elevated. The AP and transverse dimensions, when same cursor placement is used on same image slice, still measures 5.7 x 4.1 cm, respectively. On coronal image, maximum craniocaudal dimension is 6 cm. Mild chronic distortion of th e left cerebral peduncle. No abnormal enhancement or solid mass. Diffusion-weighted images and ADC map inferior to the mid brain has been omitted. Superior to this level, there is no restricted diffusion. There are scattered punctate T2 hyperintens e signal abnormalities in the subcortical and deep cerebral white matter, mostly in the centrum semiovale consistent with mild chronic white matter changes due to microvascular atherosclerosis. The re is no confluent infarction of any age. No evidence of recent or remote intra-axial hemorrhage. No obstructive hydrocephalus. No interval change overall. IMPRESSION: 1) large arachnoid cyst in left middle cranial fossa 2) no interval change.
== END 2019-08-04 08:51 | disposition home or self-care (01) ==
LOC: TBSIIMAG 08:50
PROVIDERS: ATTEND Neurological Surgery
DX: G93.0 Cerebral cysts (principal)
CPT/HCPCS: 70553

== ENCOUNTER 2021-07-17 10:54 | Outpatient (CLI) | payer SELFPAY ==
[2021-07-17 12:27] LABS: Bilirubin Neg (Negative); Blood, Urine Negative (Negative); Clarity Clear (Clear); Glucose, Urine (Dipstick) Normal (Negative); Ketone, Urine Negative (Negative); Leukocyte Negative (Negative); Nitrite Negative (Negative); Protein, Urine (Dipstick) Negative (Neg-Trace); Specific Gravity, Urine 1.015 (1.002-1.036); Urobilinogen Normal mg/dL (Less than 2); pH, Urine 6.5 (5.0-9.0)
[2021-07-17 12:29] LABS: Hemoglobin 14.7 g/dL (13.5-17.5); Mean Corpuscular Hemoglobin 30.2 pg (27.0-33.0); Mean Corpuscular Volume 86.2 fl (81.2-95.1); Mean Platelet Volume 11.5 fl (7.4-10.4); Platelet Count 249 10x3/uL (150-450); RBC Distribution Width 12.4 % (11.5-14.5); Red Blood Cell (RBC) Count 4.87 10x6/uL (4.32-5.72); White Blood Cell (WBC) Count 7.9 10x3/uL (3.5-10.5)
[2021-07-17 12:33] LABS: Bacteria/HPF None Seen HPF (None Seen); RBC/HPF 0-3 HPF (0-3); Squamous Epithelial 0-3 HPF (0-3); WBC/HPF 0-3 HPF (0-3)
[2021-07-17 12:41] LABS: INR-International Normal Ratio 0.9; PTT 24.7 sec (22.0-33.0); Prothrombin Time 10.2 sec (9.5-12.1)
[2021-07-17 12:57] LABS: Anion Gap 14 mmol/L (10-20); BUN (Urea Nitrogen) 12 mg/dL (8.4-25.7); Calc. Creatinine Clearance 0 mL/min (70-130); Calcium 9.8 mg/dL (7.8-10.44); Carbon Dioxide 28 mmol/L (22-29); Chloride 104 mmol/L (98-107); Glucose 97 mg/dL (70-105); Potassium 4.7 mmol/L (3.5-5.1); Sodium 141 mmol/L (136-145)
[2021-07-17 18:45] LABS: SARS-CoV-2 PCR by NAA Not Detected (NotDetected)
== END 2021-07-17 10:55 | disposition home or self-care (01) ==
LOC: LABBT 10:54
PROVIDERS: ATTEND Urology
DX: Z01.818 Encounter for other preprocedural examination (principal); N43.3 Hydrocele, unspecified; N40.0 Benign prostatic hyperplasia without lower urinary tract symptoms; Z20.822 Contact with and (suspected) exposure to COVID-19
CPT/HCPCS: 71046; 80048; 81001; 85027; 85610; 85730; 87086; 93005; 93010; U0003; U0005

== ENCOUNTER 2021-07-19 05:46 | Day surgery (SDC) | payer OTHER ==
[2021-07-18 10:56] VITALS: BMI 28.5
[2021-07-19] MEDS ORDERED: Bupivacaine 0.25% HCL 30 ML VIAL ONE (06:21)
[2021-07-19] MEDS ORDERED: Midazolam HCl 2 mg/2 ml Vial ONE (06:54)
[2021-07-19] MEDS ORDERED: fentaNYL Citrate/PF 100 MCG/2 ML SYRINGE ONE (06:54)
[2021-07-19] MEDS ORDERED: HYDROmorphone 0.5 MG/0.5 ML SYRINGE ONE (06:55)
[2021-07-19] MEDS ORDERED: Famotidine/PF 20 mg/2ml Vial ONE (06:55)
[2021-07-19] MEDS ORDERED: CEFAZOLIN 2 GM VIAL ONE (07:24)
[2021-07-19] MEDS ORDERED: Sodium Chloride 0.9% 100 ML ONE (07:24)
[2021-07-19] MEDS ORDERED: Ondansetron PF 4 MG/2 ML Vial ONE (07:39)
[2021-07-19] MEDS ORDERED: Dexamethasone 20 MG/5 ML VIAL ONE (07:39)
[2021-07-19] MEDS ORDERED: PROPOFOL 200 MG/20 ML VIAL ONE (07:39)
[2021-07-19] MEDS ORDERED: Lidocaine 1% PF 5 ML VIAL ONE (07:39)
[2021-07-19] MEDS ORDERED: Metoclopramide HCl 10 MG/2 ML VIAL ONE (07:39)
[2021-07-19] MEDS ORDERED: ePHEDrine 50 MG/ML VIAL ONE (07:39)
== END 2021-07-19 10:58 | disposition home or self-care (01) ==
LOC: SDC 05:46
PROVIDERS: ATTEND Urology
PROC: 0VB60ZZ Excision of Right Tunica Vaginalis, Open Approach (ICD-10-PCS; principal; 2021-07-19)
DX: N43.3 Hydrocele, unspecified (principal); N40.1 Benign prostatic hyperplasia with lower urinary tract symptoms; Z79.899 Other long term (current) drug therapy
CPT/HCPCS: 88302; J1100; J1170; J2250; J2405; J2704; J2765; J3490; S0020; S0028

== ENCOUNTER 2021-10-26 10:49 | Outpatient (CLI) | payer OTHER | END 2021-10-26 10:50 | disposition home or self-care (01) | LOC: SCSRAD 10:49 | PROVIDERS: ATTEND Family Medicine | DX: M79.672 Pain in left foot (principal); M19.072 Primary osteoarthritis, left ankle and foot ==